=== PATIENT | female | born 1980 | race African-American/Black ===

== ENCOUNTER 2016-12-18 18:33 | Observation (INO) | payer OTHER ==
[~2016-12-18] VITALS: Ht 170.2 cm; Wt 62.0 kg
[2016-12-18] VITALS (8 sets, daily range): BP systolic 98–129; BP diastolic 54–75; PULSE 63–78; RESP 16–20; TEMP 97.4–98.3; O2SAT 98–100
[~2016-12-18 18:33] MED LIST: FERR324T4 PO
[2016-12-18 18:53] LABS: MEAN CORPUSCULAR HGB CONC 26.3 % (32.0-36.0)
--- NOTE | 2016-12-18 19:01 | PD ---
HPI Chief Complaint: Materials Intern Problem/Complaint Time Seen by Provider: 18:51 Travel History International Travel<30 days: No Contact w/Intl Traveler<30days: No Traveled to known affect area: No History of Present Illness HPI This 36-year-old female complaining of lower abdominal pain. She has a history of fibroids which is quite severe in the past. She has a history of anemia and has required transfusion in the past she's had increasing bleeding with her periods for the last few weeks. She is having lower abdominal pain. She has a poor appetite. She has no history of surgery. He has not had sex with a man for many years. She believes for anywhere from 5-10 days during her period. She has noted exertional dyspnea. Today she had to climb some stairs and had to stop several times PFSH Past Medical History Anemia: Yes Anxiety: No Depression: No Cancer: No Cardiovascular Problems: No Diminished Hearing: No Endocrine: No Genitourinary: No Immune Disorder: No Musculoskeletal: No Neurologic: No Psychiatric: No Reproductive: No Respiratory: Yes Social History Alcohol Use: Yes Tobacco Use: Yes Substance Use: No Allergies-Medications (Allergen,Severity, Reaction): Coded Allergies: No Known Allergies (Verified , 02/26/16) Reported Meds & Prescriptions Reported Meds & Active Scripts Active No Active Prescriptions or Reported Medications Review of Systems General / Constitutional: No: Fever, Chills Eyes: No: Diploplia, Blurred Vision HENT: No: Headaches, Vertigo Cardiovascular: No: Chest Pain or Discomfort, Palpitations Respiratory: Positive: Shortness of Breath, No: Cough Gastrointestinal: Positive: Nausea, Abdominal Pain, No: Vomiting Genitourinary: Positive: Pelvic Pain, Vaginal Bleeding Musculoskeletal: No: Myalgias, Arthralgias Skin: No Rash Neurologic: Positive: Weakness Physical Exam Narrative GENERAL: Thin female. She appears quite pale SKIN: Focused skin assessment warm/dry. HEAD: Atraumatic. Normocephalic. EYES: Pupils equal and round. No scleral icterus. Conjunctiva pale ENT: No nasal bleeding or discharge. Mucous membranes pink and moist. NECK: Trachea midline. No JVD. CARDIOVASCULAR: Regular rate and rhythm. No murmur appreciated. RESPIRATORY: No accessory muscle use. Clear to auscultation. Breath sounds equal bilaterally. GASTROINTESTINAL: Abdomen soft, lower abdominal tenderness in the pelvic masses palpable Pelvic: There is bleeding from the cervical os. Uterus is palpable at the umbilicus and is quite firm. MUSCULOSKELETAL: No obvious deformities. No clubbing. No cyanosis. No edema. NEUROLOGICAL: Awake and alert. No obvious cranial nerve deficits. Motor grossly within normal limits. Normal speech. PSYCHIATRIC: Appropriate mood and affect; insight and judgment normal. Data Data Last Documented VS Vital Signs Date Time Temp Pulse Resp B/P Pulse Ox O2 Delivery O2 Flow Rate FiO2 12/18/16 20:05 17 12/18/16 18:56 98.2 76 98/54 98 Orders Complete Blood Count With Diff (12/18/16 18:51) Comprehensive Metabolic Panel (12/18/16 18:51) Urinalysis - C+S If Indicated (12/18/16 18:51) Ct Abd/Pel W Iv Contrast(Rout) (12/18/16 18:51) Ed Urine Pregnancytest Poc (12/18/16 18:51) Sodium Chlor 0.9% 1000 Ml Inj (Ns 1000 M (12/18/16 19:45) Ondansetron Inj (Zofran Inj) (12/18/16 19:45) Morphine Inj (Morphine Inj) (12/18/16 20:00) Red Blood Cells (Rbc) (12/18/16 20:03) Type And Screen (12/18/16 20:03) Labs Laboratory Tests Test 12/18/16 19:40 White Blood Count 4.6 TH/MM3 Red Blood Count 2.98 MIL/MM3 Hemoglobin 4.4 GM/DL Hematocrit 16.5 % Mean Corpuscular Volume 55.4 FL Mean Corpuscular Hemoglobin 14.6 PG Mean Corpuscular Hemoglobin 26.3 % Concent Red Cell Distribution Width 21.2 % Platelet Count 171 TH/MM3 Mean Platelet Volume 6.6 FL Neutrophils (%) (Auto) 69.0 % Lymphocytes (%) (Auto) 24.5 % Monocytes (%) (Auto) 5.7 % Eosinophils (%) (Auto) 0.6 % Basophils (%) (Auto) 0.2 % Neutrophils # (Auto) 3.2 TH/MM3 Lymphocytes # (Auto) 1.1 TH/MM3 Monocytes # (Auto) 0.3 TH/MM3 Eosinophils # (Auto) 0.0 TH/MM3 Basophils # (Auto) 0.0 TH/MM3 CBC Comment AUTO DIFF Urine Color YELLOW Urine Turbidity CLEAR Urine pH 6.0 Urine Specific [place] 1.021 Urine Protein NEG mg/dL Urine Glucose (UA) NEG mg/dL Urine Ketones NEG mg/dL Urine Occult Blood LARGE Urine Nitrite NEG Urine Bilirubin NEG Urine Leukocyte Esterase NEG Urine RBC 4-9 /hpf Urine WBC 0-2 /hpf Urine Squamous Epithelial 0-5 /hpf Cells Urine Mucus FEW /lpf Microscopic Urinalysis Comment CULT NOT INDICATED Sodium Level 140 MEQ/L Potassium Level 3.7 MEQ/L Chloride Level 110 MEQ/L Carbon Dioxide Level 22.2 MEQ/L Anion Gap 8 MEQ/L Blood Urea Nitrogen 12 MG/DL Creatinine 0.76 MG/DL Estimat Glomerular Filtration 104 ML/MIN Rate Random Glucose 76 MG/DL Calcium Level 8.2 MG/DL Total Bilirubin 0.4 MG/DL Aspartate Amino Transf 11 U/L (AST/SGOT) Alanine Aminotransferase 13 U/L (ALT/SGPT) Alkaline Phosphatase 46 U/L Total Protein 7.2 GM/DL Albumin 4.1 GM/DL [facility] Medical Decision Making Medical Screen Exam Complete: Yes Emergency Medical Condition: Yes Medical Record Reviewed: Yes Differential Diagnosis Differential includes anemia, uterine fibroids, Narrative Course Hemoglobin is 4.4 with an MCV of 55. Patient will need blood transfusion today. The CT scan has been ordered. She is complaining of postprandial pain and nausea Diagnosis Primary Impression: Anemia Qualified Code: D50.0 - Iron deficiency anemia due to chronic blood loss Additional Impression: Fibroid uterus Qualified Code: D25.9 - Uterine leiomyoma, unspecified location Admitting Information Admitting Physician Requests: Admit Scripts No Active Prescriptions or Reported Meds Sukhdev Santizo MD Dec 18, 2016 19:01
[2016-12-18] MEDS ORDERED: ONDANSETRON HCL 4 MG/2 ML VIAL IV PUSH ONE (19:45)
[2016-12-18] MEDS ORDERED: MORPHINE SULFATE 4 MG/ML INJ IV PUSH ONE ×3 (19:45→22:15)
[2016-12-18 19:48] LABS: BLOOD, URINE LARGE (NEG); GLUCOSE,URINE NEG (NEG); KETONE, URINE NEG (NEG); NITRITE,URINE NEG (NEG)
[2016-12-18 19:51] LABS: AUTOMATED NEUTROPHIL # 3.2 TH/MM3 (1.8-7.7); BASOPHIL % 0.2 % (0.0-2.0); EOSINOPHIL % 0.6 % (0.0-4.0); LYMPH % 24.5 % (9.0-44.0); LYMPHOCYTE # 1.1 TH/MM3 (1.0-4.8); MEAN CELL VOLUME 55.4 FL (80.0-100.0); MEAN CORPUSCULAR HEMOGLOBIN 14.6 PG (27.0-34.0); MONO % 5.7 % (0.0-8.0); PLATELET COUNT 171 TH/MM3 (150-450); RED BLOOD COUNT 2.98 MIL/MM3 (4.00-5.30); RED CELL DISTRIBUTION WIDTH 21.2 % (11.6-17.2); WHITE BLOOD COUNT 4.6 TH/MM3 (4.0-11.0)
[2016-12-18 19:55] LABS: CHLORIDE 110 MEQ/L (98-107); MUCUS URINE FEW /lpf (OCC); POTASSIUM 3.7 MEQ/L (3.5-5.1); SODIUM (NA) 140 MEQ/L (136-145); SQUAMOUS EPITHELIAL CELL URINE 0-5 /hpf (0-5); URINE COLOR YELLOW (YELLW/STRAW); WBC, URINE 0-2 /hpf (0-5)
[2016-12-18 19:56] LABS: COMMENT (UR) CULT NOT INDICATED; CULTURE IF INDICATED CULT NOT INDICATED
[2016-12-18 19:58] LABS: ANION GAP 8 MEQ/L (5-15); BICARBONATE 22.2 MEQ/L (21.0-32.0); BLOOD UREA NITROGEN 12 MG/DL (7-18); HEMO FLAGS AUTO DIFF
[2016-12-18] MEDS: SODIUM CHLOR 0.9% 1000 ML INJ 1,000 ML IV SCH (19:58)
[2016-12-18 20:00] LABS: HEMATOCRIT 16.5 % (35.0-46.0)
[2016-12-18] MEDS ORDERED: MORPHINE SULFATE 8 MG/ML INJ IV PUSH ONE ×2 (20:00→22:15)
[2016-12-18 20:01] LABS: ALT (GPT) 13 U/L (10-53)
[2016-12-18 20:02] LABS: AST (GOT) 11 U/L (15-37); GLOMERULAR FILTRATION RATE 104 ML/MIN (>89)
[2016-12-18 20:03] LABS: TOTAL BILIRUBIN ADULT 0.4 MG/DL (0.2-1.0)
[2016-12-18 20:04] LABS: ALKALINE PHOSPHATASE 46 U/L (45-117)
[2016-12-18 20:39] LABS: OVALOCYTES 2+ (NORMAL); STOMATOCYTES 1+ (NORMAL); TEARDROP RBCS 2+ (NORMAL)
[2016-12-18 20:41] LABS: SCAN/DIFF AUTO DIFF CONFIRMED
[2016-12-18 20:42] LABS: ACANTHOCYTES 1+ (NORMAL)
[2016-12-18] MEDS ORDERED: IOHEXOL 350 MG/ML 10 ML VIAL (for RAD DIAG) IV ONE (20:42)
--- NOTE | 2016-12-18 21:14 | RADRPT ---
EXAM DATE/TIME: 12/18/2016 20:29 [facility] COMPARISON: US PELVIS,COMP,W DOPPLER, February 20, 2016, 21:21. INDICATIONS : History of fibroids. Heavy bleeding since 12-01-16 IV CONTRAST: 96 cc Omnipaque 350 (iohexol) IV ORAL CONTRAST: No oral contrast ingested. RADIATION DOSE: 4.73 CTDIvol (mGy) MEDICAL HISTORY : Anemia, fibriods SURGICAL HISTORY : None. ENCOUNTER: Initial ACUITY: 2 weeks PAIN SCALE: 10/10 LOCATION: Bilateral pelvis TECHNIQUE: Volumetric scanning of the abdomen and pelvis was performed. Using automated exposure control and ad justment of the mA and/or kV according to patient size, radiation dose was kept as low as reasonably achievable to obtain optimal diagnostic quality images. DICOM format image data is available electro nically for review and comparison. FINDINGS: CT Abdomen: The liver, spleen, pancreas, kidneys, adrenals are unremarkable. There is no evidence for any appreciable pathological adenopathy, free fluid, or bowel obstruction. CT pelvis: The uterus is enlarged measures 12.4 cm in craniocaudal dimension and is filled with multi ple masses most likely fibroids the largest one measures 9.3 cm in size, however malignant degenerati on is difficult to exclude. Possible 2.5 cm cyst is present in the left ovary. CONCLUSION: Huge uterus filled with multiple masses most likely fibroids. Oumar Leblanc MD on December 18, 2016 at 21:09 Board Certified Radiologist. This report was verified electronically.
[2016-12-18] MEDS ORDERED: BISACODYL 10 MG SUPP RECTAL PRN (21:15)
[2016-12-18] MEDS ORDERED: NALOXONE HCL 0.4 MG/ML AMP IV PRN (21:15)
[2016-12-18] MEDS ORDERED: SENNOSIDES 8.6 MG TAB PO PRN (21:15)
[2016-12-18] MEDS ORDERED: SODIUM CHLORIDE 0.9% FLUSH 10 ML FLUSH IV FLUSH PRN (21:15)
[2016-12-18] MEDS ORDERED: MAGNESIUM HYDROXIDE SUSP 30 ML CUP PO PRN (21:15)
[2016-12-18] MEDS ORDERED: LACTULOSE SYRUP 20 GM/30 ML CUP PO PRN (21:15)
[2016-12-18] MEDS ORDERED: SODIUM CHLOR 0.9% 250 ML INJ 250 ML IV ONE (21:30)
[2016-12-19] VITALS (10 sets, daily range): BP systolic 95–118; BP diastolic 55–77; PULSE 52–67; RESP 16–20; TEMP 97–98.1; O2SAT 99–100
[2016-12-19] MEDS: SODIUM CHLOR 0.9% 1000 ML INJ 1,000 ML IV SCH ×3 (03:45→22:04)
[2016-12-19] MEDS: MORPHINE SULFATE 8 MG/ML INJ IV PUSH PRN ×5 (03:58→23:22)
[2016-12-19] MEDS: SODIUM CHLORIDE 0.9% FLUSH 10 ML FLUSH IV FLUSH SCH ×2 (08:39→22:04)
[2016-12-19] MEDS: DOCUSATE SODIUM 50 MG/SENNA 8.6 MG TAB PO SCH ×2 (08:39→22:04)
[2016-12-19 11:33] LABS: AUTOMATED NEUTROPHIL # 2.9 TH/MM3 (1.8-7.7); BASOPHIL % 0.2 % (0.0-2.0); EOSINOPHIL % 0.8 % (0.0-4.0); HEMATOCRIT 26.6 % (35.0-46.0); LYMPH % 20.3 % (9.0-44.0); LYMPHOCYTE # 0.8 TH/MM3 (1.0-4.8); MEAN CELL VOLUME 66.5 FL (80.0-100.0); MEAN CORPUSCULAR HEMOGLOBIN 20.3 PG (27.0-34.0); MEAN CORPUSCULAR HGB CONC 30.5 % (32.0-36.0); MONO % 7.2 % (0.0-8.0); NEUT % 71.5 % (16.0-70.0); PLATELET COUNT 109 TH/MM3 (150-450); RED CELL DISTRIBUTION WIDTH 27.2 % (11.6-17.2)
[2016-12-19 11:36] LABS: HEMO FLAGS AUTO DIFF
[2016-12-19 11:40] LABS: POTASSIUM 3.7 MEQ/L (3.5-5.1)
[2016-12-19 11:45] LABS: BICARBONATE 24.5 MEQ/L (21.0-32.0)
[2016-12-19 12:06] LABS: ACANTHOCYTES 1+ (NORMAL); KERATOCYTES 1+ (NORMAL); OVALOCYTES 2+ (NORMAL); PLATELET ESTIMATE SMEAR LOW (NORMAL); PLATELET MORPHOLOGY NORMAL (NORMAL); SCAN/DIFF AUTO DIFF CONFIRMED; TEARDROP RBCS 1+ (NORMAL)
--- NOTE | 2016-12-19 17:34 | MH ---
cc: CLIFTON CULVER MD DATE OF ADMISSION 12/18/2016 CHIEF COMPLAINT Abdominal pain. HISTORY OF PRESENT ILLNESS This is a 36-year-old female with past medical-surgical history significant for anemia. Smoker, complaining of lower abdominal pain and the history of fibroid which is quite severe, in the past have a history of anemia and required transfusion in the past. She did have increasing bleeding with periods for the last week and she is having lower abdominal pain, has a poor appetite and no history of surgery. The pain is about a 7/10, sharp, lower abdominal area, worse with pressure, other than that nothing significant. Actually, this patient was seen by me in my office yesterday and then I sent her to the ER and she got admitted over there for further evaluation and management. Other than that nothing significant. PAST MEDICAL-SURGICAL HISTORY As dictated above. SOCIAL HISTORY She is a smoker. Drinks alcohol and denies any drug abuse. She lives at home, works at [email or web address]. FAMILY HISTORY Nothing significant. ALLERGIES NO KNOWN DRUG ALLERGIES. MEDICATIONS None. REVIEW OF SYSTEMS Lower abdominal pain and vaginal bleeding. Feeling weak and tired. All other review of systems are negative. PHYSICAL EXAMINATION GENERAL: This is a 36-year-old female laying on the bed, not in acute distress. VITAL SIGNS: Temperature 97.0, heart rate 52, respiration 18, blood pressure 118/70, O2 saturation 99% room air. HEENT: Normocephalic, atraumatic. EOMI. PERRL. Oral mucosa moist. NECK: Neck is supple. No visible thyromegaly or neck mass. Trachea central. CVS: Regular rate and rhythm. LUNGS: Respirations clear to auscultation bilaterally. ABDOMEN: Soft, tender diffuse lower abdominal, bowel sounds audible. Deep palpation not done because of the pain. EXTREMITIES: No cyanosis, clubbing. Full range of motion of all extremities. NEURO: Awake, alert, oriented x4. No focal deficits. LABORATORY DATA Include CBC showed WBC count 4.6, hemoglobin was 4.4, status post transfusion increased up to 8.1, hematocrit was 16.5, increased up to 26.6, platelet count 171, now it is 109. BMP totally unremarkable except for calcium 7.8, low. LFTs are normal. Urine examination shows large occult blood, 4 to [address] abdomen and pelvis was done shows huge uterus filled with multiple masses, most likely fibroid. ASSESSMENT/PLAN 1. This is a 36-year-old female who came to the ER diagnosed with excessive vaginal bleeding with a uterine fibroid leading to severe life threatening anemia, hemoglobin was 4.4. Status post blood transfusion hemoglobin increased to 8.1. Gynecology consulted. Further recommendation per gynecology. 2. Acute blood loss anemia secondary to vaginal bleeding and fibroids. 3. Smoking, advised to quit. 4. History of anemia secondary to vaginal bleeding. 5. DVT prophylaxis, SCDs. 6. GI prophylaxis, Protonix 40 milligrams p.o. daily. 7. We are going to manage the patient on a daily basis, make recommendations on a daily basis. Clifton Culver MD EA/POLLY /5:17 PM /5:26 PM
[2016-12-19 21:09] LABS: MEAN CORPUSCULAR HGB CONC 29.3 % (32.0-36.0)
[2016-12-20] VITALS: BP 119/72; PULSE 59; RESP 16; TEMP 97.9; O2SAT 98
[2016-12-20] MEDS: MORPHINE SULFATE 8 MG/ML INJ IV PUSH PRN ×4 (04:41→22:24)
[2016-12-20] MEDS: SODIUM CHLOR 0.9% 1000 ML INJ 1,000 ML IV SCH ×3 (04:43→19:59)
[2016-12-20 08:00] VITALS: BP 110/71; PULSE 65; RESP 20; TEMP 97.9; O2SAT 99
--- NOTE | 2016-12-20 08:50 | HHI.PR ---
Subjective History of Present Illness Patient still have abdominal pain and pelvic pain [employer] input noted Review of Systems Constitutional Constitutional: Fatigue GI/Abdomen GI/Abdominal Exam: Abdominal Pain Vitals/Results Intake & Output 12/19/16 12/19/16 12/20/16 15:00 23:00 07:00 Intake Total 750 ml 480 ml 1400 ml Balance 750 ml 480 ml 1400 ml Intake Oral 750 ml 480 ml IV Total 1400 ml # Voids 6 2 # Bowel Movements 0 0 Vital Signs Vital Signs Date Time Temp Pulse Resp B/P Pulse Ox O2 Delivery O2 Flow Rate FiO2 12/20/16 00:00 97.9 59 16 119/72 98 12/19/16 20:25 99 21 12/19/16 20:00 97.7 63 18 113/77 100 12/19/16 18:49 18 12/19/16 16:00 98.0 65 16 102/55 100 12/19/16 12:00 97.0 52 18 118/70 99 CBC/BMP: 12/19/16 1120 12/19/16 1120 Lab Results Laboratory Tests Test 12/19/16 11:20 White Blood Count 4.0 TH/MM3 Red Blood Count 4.00 MIL/MM3 Hemoglobin 8.1 GM/DL Hematocrit 26.6 % Mean Corpuscular Volume 66.5 FL Mean Corpuscular Hemoglobin 20.3 PG Mean Corpuscular Hemoglobin 30.5 % Concent Red Cell Distribution Width 27.2 % Platelet Count 109 TH/MM3 Mean Platelet Volume 6.8 FL Neutrophils (%) (Auto) 71.5 % Lymphocytes (%) (Auto) 20.3 % Monocytes (%) (Auto) 7.2 % Eosinophils (%) (Auto) 0.8 % Basophils (%) (Auto) 0.2 % Neutrophils # (Auto) 2.9 TH/MM3 Lymphocytes # (Auto) 0.8 TH/MM3 Monocytes # (Auto) 0.3 TH/MM3 Eosinophils # (Auto) 0.0 TH/MM3 Basophils # (Auto) 0.0 TH/MM3 CBC Comment AUTO DIFF Differential Comment AUTO DIFF CONFIRMED Platelet Estimate LOW Platelet Morphology Comment NORMAL Tear Drop Cells 1+ Ovalocytes 2+ Acanthocytes 1+ Keratocytes 1+ Sodium Level 142 MEQ/L Potassium Level 3.7 MEQ/L Chloride Level 110 MEQ/L Carbon Dioxide Level 24.5 MEQ/L Anion Gap 8 MEQ/L Blood Urea Nitrogen 10 MG/DL Creatinine 0.62 MG/DL Estimat Glomerular Filtration 131 ML/MIN Rate Random Glucose 99 MG/DL Calcium Level 7.8 MG/DL Physical Exam General General Appearance: Well Nourished, No Acute Distress, Comfortable Eyes Eye Exam: Pupils Equal, Pupils Reactive, Sclera White, Extraocular Movement Intact Throat Throat Exam: Oral Mucosa [place] & Moist, Oral Pharynx Normal Neck Neck Exam: Neck Supple, Trachea Midline Pulmonary Resp Exam: Clear Bilaterally, Breath Sounds Equal, No Distress Cardiology CV Exam: Regular, Normal Sinus Rhythm Gastrointestinal/Abdomen GI Exam: Soft, Non-Tender, Bowel Sounds Present Musculoskeletal MS Exam: Normal Tone Neurologic Neuro Exam: Alert, Awake, Oriented, Speech Clear, Moving All Extremities, No Focal Deficits Psychiatric Psych Exam: Appropriate Responses VTE Prophylaxis VTE Prophylaxis Device: SCDs PUD Prophylasis PUD Prophylaxis: Protonix Assessment/Plan Assessment/Plan ASSESSMENT/PLAN 1. This is a 36-year-old female who came to the ER diagnosed with excessive vaginal bleeding with a uterine fibroid leading to severe life threatening anemia, hemoglobin was 4.4. Status post blood transfusion hemoglobin increased to 8.1. Gynecology consulted. Further recommendation per gynecology. 2. Acute blood loss anemia secondary to vaginal bleeding and fibroids. 3. Smoking, advised to quit. 4. History of anemia secondary to vaginal bleeding. 5. DVT prophylaxis, SCDs. 6. GI prophylaxis, Protonix 40 milligrams p.o. daily. 7. We are going to manage the patient on a daily basis, make recommendations on a daily basis. Discussed Condition with: Patient Clifton Izquierdo MD Dec 20, 2016 08:50
[2016-12-20] MEDS: SODIUM CHLORIDE 0.9% FLUSH 10 ML FLUSH IV FLUSH SCH ×2 (08:52→19:59)
[2016-12-20] MEDS: DOCUSATE SODIUM 50 MG/SENNA 8.6 MG TAB PO SCH ×2 (08:52→19:59)
[2016-12-20 09:00] LABS: AUTOMATED NEUTROPHIL # 3.3 TH/MM3 (1.8-7.7); BASOPHIL % 0.1 % (0.0-2.0); EOSINOPHIL % 0.7 % (0.0-4.0); LYMPH % 24.6 % (9.0-44.0); LYMPHOCYTE # 1.2 TH/MM3 (1.0-4.8); MEAN CELL VOLUME 67.3 FL (80.0-100.0); MEAN CORPUSCULAR HEMOGLOBIN 19.7 PG (27.0-34.0); MONO % 7.5 % (0.0-8.0); NEUT % 67.1 % (16.0-70.0); PLATELET COUNT 103 TH/MM3 (150-450); RED BLOOD COUNT 4.17 MIL/MM3 (4.00-5.30); RED CELL DISTRIBUTION WIDTH 27.9 % (11.6-17.2); WHITE BLOOD COUNT 4.9 TH/MM3 (4.0-11.0)
[2016-12-20 09:09] LABS: CHLORIDE 114 MEQ/L (98-107); POTASSIUM 4.1 MEQ/L (3.5-5.1); SODIUM (NA) 143 MEQ/L (136-145)
[2016-12-20 09:33] LABS: HEMO FLAGS AUTO DIFF
[2016-12-20 09:41] LABS: ALKALINE PHOSPHATASE 43 U/L (45-117); ALT (GPT) 13 U/L (10-53); ANION GAP 7 MEQ/L (5-15); AST (GOT) 11 U/L (15-37); BICARBONATE 21.9 MEQ/L (21.0-32.0); BLOOD UREA NITROGEN 8 MG/DL (7-18); GLOMERULAR FILTRATION RATE 136 ML/MIN (>89); TOTAL BILIRUBIN ADULT 0.4 MG/DL (0.2-1.0)
[2016-12-20] MEDS ORDERED: PERC5TAB12 PO (09:57)
[2016-12-20 10:01] LABS: SCAN/DIFF AUTO DIFF CONFIRMED
[2016-12-20 12:00] VITALS: BP 110/69; PULSE 62; RESP 20; TEMP 98.1; O2SAT 100
[2016-12-20] MEDS: ONDANSETRON HCL 4 MG/2 ML VIAL IVP PRN ×2 (13:47→19:58)
--- NOTE | 2016-12-20 15:33 | PD.CONS ---
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 The information given to me at first was that the patient was in the [facility] which meant that the OB Hospitalist was in charge of the consult. I was later made aware that the patient was in [facility] which meant that I was responsible for seeing the patient. Unfortunately, on early Thursday morning I had to take my to [place] for his medical care at [facility] so the consult slipped my mind. Two days later I received a call from the patient' s nurse Cande who was frustrated due to "delayed patient care" and "I will speak about this with my animal maintenance supervisor". As much as it is true that I am responsible for the consult as it came in , it is also true that if the physician requesting the consult and the nurse taking care of the patient were really concerned about her care, they would have reminded me a lot sooner. Instead, I was scalded by both of them today for not taking care of the patient. I apologized. Laboratory Tests Test 12/18/16 12/18/16 12/19/16 12/20/16 19:40 20:08 11:20 07:36 White Blood Count 4.6 TH/MM3 4.0 TH/MM3 4.9 TH/MM3 Red Blood Count 2.98 MIL/MM3 4.00 MIL/MM3 4.17 MIL/MM3 Hemoglobin 4.4 GM/DL 8.1 GM/DL 8.2 GM/DL Hematocrit 16.5 % 26.6 % 28.0 % Mean Corpuscular Volume 55.4 FL 66.5 FL 67.3 FL Mean Corpuscular Hemoglobin 14.6 PG 20.3 PG 19.7 PG Mean Corpuscular Hemoglobin 26.3 % 30.5 % 29.3 % Concent Red Cell Distribution Width 21.2 % 27.2 % 27.9 % Platelet Count 171 TH/MM3 109 TH/MM3 103 TH/MM3 Mean Platelet Volume 6.6 FL 6.8 FL 7.5 FL Neutrophils (%) (Auto) 69.0 % 71.5 % 67.1 % Lymphocytes (%) (Auto) 24.5 % 20.3 % 24.6 % Monocytes (%) (Auto) 5.7 % 7.2 % 7.5 % Eosinophils (%) (Auto) 0.6 % 0.8 % 0.7 % Basophils (%) (Auto) 0.2 % 0.2 % 0.1 % Neutrophils # (Auto) 3.2 TH/MM3 2.9 TH/MM3 3.3 TH/MM3 Lymphocytes # (Auto) 1.1 TH/MM3 0.8 TH/MM3 1.2 TH/MM3 Monocytes # (Auto) 0.3 TH/MM3 0.3 TH/MM3 0.4 TH/MM3 Eosinophils # (Auto) 0.0 TH/MM3 0.0 TH/MM3 0.0 TH/MM3 Basophils # (Auto) 0.0 TH/MM3 0.0 TH/MM3 0.0 TH/MM3 CBC Comment AUTO DIFF AUTO DIFF AUTO DIFF Differential Comment AUTO DIFF AUTO DIFF AUTO DIFF CONFIRMED CONFIRMED CONFIRMED Target Cells Tear Drop Cells 2+ 1+ Ovalocytes 2+ 2+ Stomatocytes 1+ Acanthocytes 1+ 1+ Keratocytes 1+ Urine Color YELLOW Urine Turbidity CLEAR Urine pH 6.0 Urine Specific [place] 1.021 Urine Protein NEG mg/dL Urine Glucose (UA) NEG mg/dL Urine Ketones NEG mg/dL Urine Occult Blood LARGE Urine Nitrite NEG Urine Bilirubin NEG Urine Leukocyte Esterase NEG Urine RBC 4-9 /hpf Urine WBC 0-2 /hpf Urine Squamous Epithelial 0-5 /hpf Cells Urine Mucus FEW /lpf Microscopic Urinalysis Comment CULT NOT INDICATED Sodium Level 140 MEQ/L 142 MEQ/L 143 MEQ/L Potassium Level 3.7 MEQ/L 3.7 MEQ/L 4.1 MEQ/L Chloride Level 110 MEQ/L 110 MEQ/L 114 MEQ/L Carbon Dioxide Level 22.2 MEQ/L 24.5 MEQ/L 21.9 MEQ/L Anion Gap 8 MEQ/L 8 MEQ/L 7 MEQ/L Blood Urea Nitrogen 12 MG/DL 10 MG/DL 8 MG/DL Creatinine 0.76 MG/DL 0.62 MG/DL 0.60 MG/DL Estimat Glomerular Filtration 104 ML/MIN 131 ML/MIN 136 ML/MIN Rate Random Glucose 76 MG/DL 99 MG/DL 71 MG/DL Calcium Level 8.2 MG/DL 7.8 MG/DL 7.9 MG/DL Total Bilirubin 0.4 MG/DL 0.4 MG/DL Aspartate Amino Transf 11 U/L 11 U/L (AST/SGOT) Alanine Aminotransferase 13 U/L 13 U/L (ALT/SGPT) Alkaline Phosphatase 46 U/L 43 U/L Total Protein 7.2 GM/DL 6.0 GM/DL Albumin 4.1 GM/DL 3.2 GM/DL Blood Type A POSITIVE Antibody Screen NEGATIVE Crossmatch Leukocyte-Reduced Red Blood Cells Blood Bank Comment Platelet Estimate LOW Platelet Morphology Comment NORMAL Vital Signs Date Time Temp Pulse Resp B/P Pulse Ox O2 Delivery O2 Flow Rate FiO2 12/20/16 12:00 98.1 62 20 110/69 100 12/20/16 08:00 97.9 65 20 110/71 99 12/20/16 00:00 97.9 59 16 119/72 98 12/19/16 20:25 99 21 12/19/16 20:00 97.7 63 18 113/77 100 12/19/16 18:49 18 12/19/16 16:00 98.0 65 16 102/55 100 Last 48 hours Impressions Abdomen/Pelvis CT 12/18/161850 Signed Impressions: Service Date/Time: December 20:29 - CONCLUSION: Huge uterus filled with multiple masses most likely fibroids. Oumar Leblanc MD Last Impressions Pelvis Ultrasound 12/20/16 0000 Signed Impressions: Service Date/Time: Tuesday, December 20, 2016 20:17 - CONCLUSION: Multiple uterine fibroids with possibly an endometrial polyp versus a submucosal fibroid as well. Oumar Leblanc MD Abdomen/Pelvis CT 12/18/161850 Signed Impressions: Service Date/Time: December 20:29 - CONCLUSION: Huge uterus filled with multiple masses most likely fibroids. Omuar Leblanc MD A/P -- severe anemia secondary to long history of menorrhagia / AUB secondary to fibroids 1. IV Premarin x 4 doses 2. recommended to take Progesterone 10 mg PO qhs until surgery 3. discussed the need for a pap smear and improvement of her anemia before she can have surgery 4. discussed different types of hysterectomy / leaving ovaries in situ 5. answered patient's and partner's questions; they verbalized understanding and agreement to the treatment plan Kathleen Valdes MD Dec 20, 2016 15:33
[2016-12-20 16:00] VITALS: BP 119/74; PULSE 57; RESP 20; TEMP 98.1; O2SAT 100
[2016-12-20] MEDS: ESTROGENS CONJUGATED 25 MG/5 ML VIAL IM SCH ×2 (17:34→22:23)
--- NOTE | 2016-12-20 20:44 | RADRPT ---
EXAM DATE/TIME: 12/20/2016 20:17 [facility] COMPARISON: No previous studies available for comparison. INDICATIONS : History of fibroids. Heavy bleeding since 12-01-16. MEDICAL HISTORY : Fibroids. Anemia. SURGICAL HISTORY : None. ENCOUNTER: [facility] ACUITY: 2 weeks PAIN SCORE: 7/10 LOCATION: Bilateral pelvis. MEASUREMENTS: UTERUS: 15.7 x 11.2 x 11.9 cm ENDOMETRIAL STRIPE: 10 mm RIGHT OVARY: 2.9 x 1.8 x 1.8 cm LEFT OVARY: 3.8 x 3.6 x 2.7 cm FINDINGS: The uterus is enlarged with numerous fibroids within it the largest one measures almost 8 cm in size it. There is tiny amount of fluid in the cul-de-sac. There is no adnexal mass. The there is an endome trial polyp versus a submucosal fibroid as well. CONCLUSION: Multiple uterine fibroids with possibly an endometrial polyp versus a submucosal fibroid as well. Oumar Leblanc MD on December 20, 2016 at 20:41 Board Certified Radiologist. This report was verified electronically.
[2016-12-20 21:23] VITALS: BP 111/68; PULSE 68; RESP 18; TEMP 98.6; O2SAT 98
[2016-12-21] VITALS: BP 105/70; PULSE 71; RESP 18; TEMP 98.2; O2SAT 100
[2016-12-21] MEDS: ESTROGENS CONJUGATED 25 MG/5 ML VIAL IM SCH ×2 (03:38→09:51)
[2016-12-21] MEDS: SODIUM CHLOR 0.9% 1000 ML INJ 1,000 ML IV SCH ×3 (03:38→21:12)
[2016-12-21 08:00] VITALS: BP 102/65; PULSE 88; RESP 18; TEMP 98.3; O2SAT 100
[2016-12-21 08:48] LABS: AUTOMATED NEUTROPHIL # 4.7 TH/MM3 (1.8-7.7); BASOPHIL % 0.2 % (0.0-2.0); EOSINOPHIL % 0.8 % (0.0-4.0); HEMATOCRIT 27.5 % (35.0-46.0); LYMPH % 14.5 % (9.0-44.0); LYMPHOCYTE # 0.9 TH/MM3 (1.0-4.8); MEAN CELL VOLUME 67.2 FL (80.0-100.0); MEAN CORPUSCULAR HEMOGLOBIN 19.5 PG (27.0-34.0); MONO % 7.4 % (0.0-8.0); NEUT % 77.1 % (16.0-70.0); PLATELET COUNT 87 TH/MM3 (150-450); RED BLOOD COUNT 4.08 MIL/MM3 (4.00-5.30); RED CELL DISTRIBUTION WIDTH 28.8 % (11.6-17.2); WHITE BLOOD COUNT 6.1 TH/MM3 (4.0-11.0)
[2016-12-21 08:52] LABS: HEMO FLAGS AUTO DIFF
[2016-12-21 08:59] LABS: CHLORIDE 114 MEQ/L (98-107); POTASSIUM 3.9 MEQ/L (3.5-5.1); SODIUM (NA) 143 MEQ/L (136-145)
[2016-12-21 09:03] LABS: ANION GAP 9 MEQ/L (5-15)
[2016-12-21 09:04] LABS: BLOOD UREA NITROGEN 8 MG/DL (7-18)
[2016-12-21 09:07] LABS: ALT (GPT) 14 U/L (10-53); AST (GOT) 12 U/L (15-37); GLOMERULAR FILTRATION RATE 124 ML/MIN (>89)
[2016-12-21 09:08] LABS: TOTAL BILIRUBIN ADULT 0.5 MG/DL (0.2-1.0)
[2016-12-21 09:09] LABS: ALKALINE PHOSPHATASE 40 U/L (45-117)
[2016-12-21 09:39] LABS: SCAN/DIFF AUTO DIFF CONFIRMED
--- NOTE | 2016-12-21 09:41 | HHI.PR ---
Subjective History of Present Illness Patient still have abdominal pain and pelvic pain and vaginal bleeding.. Cadmium Plater input noted s/p IV Premarin x 4 doses, Progesterone 10 mg PO qhs until surgery Patient need for a pap smear and improvement of her anemia before she can have surgery ACIDIZER have discussed different types of hysterectomy / leaving ovaries in situ Review of Systems Constitutional Constitutional: Fatigue GI/Abdomen GI/Abdominal Exam: Abdominal Pain Vitals/Results Intake & Output 12/20/16 12/20/16 12/21/16 15:00 23:00 07:00 Intake Total 450 ml 240 ml 1250 ml Balance 450 ml 240 ml 1250 ml Intake Oral 450 ml 240 ml IV Total 1250 ml # Voids 2 2 0 # Bowel Movements 0 Vital Signs Vital Signs Date Time Temp Pulse Resp B/P Pulse Ox O2 Delivery O2 Flow Rate FiO2 12/21/16 08:00 98.3 88 18 102/65 100 12/21/16 04:00 12/21/16 00:00 98.2 71 18 105/70 100 12/20/16 21:23 98.6 68 18 111/68 98 12/20/16 18:38 18 12/20/16 16:00 98.1 57 20 119/74 100 12/20/16 12:00 98.1 62 20 110/69 100 CBC/BMP: 12/21/16 0737 12/21/16 0737 Lab Results Laboratory Tests Test 12/21/16 07:37 White Blood Count 6.1 TH/MM3 Red Blood Count 4.08 MIL/MM3 Hemoglobin 7.9 GM/DL Hematocrit 27.5 % Mean Corpuscular Volume 67.2 FL Mean Corpuscular Hemoglobin 19.5 PG Mean Corpuscular Hemoglobin 29.0 % Concent Red Cell Distribution Width 28.8 % Platelet Count 87 TH/MM3 Mean Platelet Volume 7.1 FL Neutrophils (%) (Auto) 77.1 % Lymphocytes (%) (Auto) 14.5 % Monocytes (%) (Auto) 7.4 % Eosinophils (%) (Auto) 0.8 % Basophils (%) (Auto) 0.2 % Neutrophils # (Auto) 4.7 TH/MM3 Lymphocytes # (Auto) 0.9 TH/MM3 Monocytes # (Auto) 0.5 TH/MM3 Eosinophils # (Auto) 0.0 TH/MM3 Basophils # (Auto) 0.0 TH/MM3 CBC Comment AUTO DIFF Differential Comment AUTO DIFF CONFIRMED Sodium Level 143 MEQ/L Potassium Level 3.9 MEQ/L Chloride Level 114 MEQ/L Carbon Dioxide Level 20.0 MEQ/L Anion Gap 9 MEQ/L Blood Urea Nitrogen 8 MG/DL Creatinine 0.65 MG/DL Estimat Glomerular Filtration 124 ML/MIN Rate Random Glucose 70 MG/DL Calcium Level 7.6 MG/DL Total Bilirubin 0.5 MG/DL Aspartate Amino Transf 12 U/L (AST/SGOT) Alanine Aminotransferase 14 U/L (ALT/SGPT) Alkaline Phosphatase 40 U/L Total Protein 5.5 GM/DL Albumin 2.9 GM/DL Physical Exam General General Appearance: Well Nourished, No Acute Distress, Comfortable Eyes Eye Exam: Pupils Equal, Pupils Reactive, Sclera White, Extraocular Movement Intact Throat Throat Exam: Oral Mucosa [place] & Moist, Oral Pharynx Normal Neck Neck Exam: Neck Supple, Trachea Midline Pulmonary Resp Exam: Clear Bilaterally, Breath Sounds Equal, No Distress Cardiology CV Exam: Regular, Normal Sinus Rhythm Gastrointestinal/Abdomen GI Exam: Soft, Non-Tender, Bowel Sounds Present Musculoskeletal MS Exam: Normal Tone Neurologic Neuro Exam: Alert, Awake, Oriented, Speech Clear, Moving All Extremities, No Focal Deficits Psychiatric Psych Exam: Appropriate Responses VTE Prophylaxis VTE Prophylaxis Device: SCDs PUD Prophylasis PUD Prophylaxis: Protonix Assessment/Plan Assessment/Plan ASSESSMENT/PLAN 1. This is a 36-year-old female who came to the ER diagnosed with excessive vaginal bleeding with a uterine fibroid leading to severe life threatening anemia, hemoglobin was 4.4. Status post blood transfusion hemoglobin increased to 8.1. Gynecology Cadmium Plater input noted s/p IV Premarin x 4 doses, Progesterone 10 mg PO qhs until surgery Patient need for a pap smear and improvement of her anemia before she can have surgery ACIDIZER have discussed different types of hysterectomy / leaving ovaries in situ Further recommendation per gynecology. 2. Acute blood loss anemia secondary to vaginal bleeding and fibroids. 3. Smoking, advised to quit. 4. History of anemia secondary to vaginal bleeding. 5. DVT prophylaxis, SCDs. 6. GI prophylaxis, Protonix 40 milligrams p.o. daily. 7. We are going to manage the patient on a daily basis, make recommendations on a daily basis. Discussed Condition with: Patient Clifton Izquierdo MD Dec 21, 2016 09:41
[2016-12-21] MEDS: MORPHINE SULFATE 8 MG/ML INJ IV PUSH PRN ×2 (09:51→21:09)
[2016-12-21] MEDS: SODIUM CHLORIDE 0.9% FLUSH 10 ML FLUSH IV FLUSH SCH ×2 (09:54→21:09)
[2016-12-21] MEDS: DOCUSATE SODIUM 50 MG/SENNA 8.6 MG TAB PO SCH ×2 (09:54→21:09)
[2016-12-21 12:00] VITALS: BP 107/67; PULSE 78; RESP 18; TEMP 98.3; O2SAT 100
[2016-12-21 16:00] VITALS: BP 106/66; PULSE 85; RESP 18; TEMP 98.6; O2SAT 100
[2016-12-21 22:15] VITALS: BP 125/77; PULSE 62; RESP 16; TEMP 99.2; O2SAT 99
[2016-12-22 01:28] VITALS: BP 98/68; PULSE 73; RESP 18; TEMP 97.8; O2SAT 98
[2016-12-22] MEDS: SODIUM CHLOR 0.9% 1000 ML INJ 1,000 ML IV SCH (03:45)
[2016-12-22 08:00] VITALS: BP 109/65; PULSE 62; RESP 17; TEMP 98.1; O2SAT 100
--- NOTE | 2016-12-22 08:10 | HHI.PR ---
Subjective History of Present Illness Patient still have abdominal pain and pelvic pain and vaginal bleeding.. Endoscopy Tech input noted s/p IV Premarin x 4 doses, Progesterone 10 mg PO qhs until surgery Patient need for a pap smear and improvement of her anemia before she can have surgery [employer]IL RIG ROUGHNECK have discussed different types of hysterectomy / leaving ovaries in situ. d/w RN Tony at bed side. Review of Systems Constitutional Constitutional: Fatigue GI/Abdomen GI/Abdominal Exam: Abdominal Pain Vitals/Results Intake & Output 12/21/16 12/21/16 12/22/16 15:00 23:00 07:00 Intake Total 480 ml 1490 ml Balance 480 ml 1490 ml Intake Oral 480 ml 240 ml IV Total 1250 ml # Voids 2 3 Vital Signs Vital Signs Date Time Temp Pulse Resp B/P Pulse Ox O2 Delivery O2 Flow Rate FiO2 12/22/16 04:00 12/22/16 01:28 97.8 73 18 98/68 98 12/21/16 22:15 99.2 62 16 125/77 99 12/21/16 16:00 98.6 85 18 106/66 100 12/21/16 12:00 98.3 78 18 107/67 100 12/21/16 10:09 18 CBC/BMP: 12/22/16 0347 12/21/16 0737 Lab Results Laboratory Tests Test 12/21/16 12/22/16 19:40 03:47 Hemoglobin 8.1 GM/DL 7.7 GM/DL Physical Exam General General Appearance: Well Nourished, No Acute Distress, Comfortable Eyes Eye Exam: Pupils Equal, Pupils Reactive, Sclera White, Extraocular Movement Intact Throat Throat Exam: Oral Mucosa [place] & Moist, Oral Pharynx Normal Neck Neck Exam: Neck Supple, Trachea Midline Pulmonary Resp Exam: Clear Bilaterally, Breath Sounds Equal, No Distress Cardiology CV Exam: Regular, Normal Sinus Rhythm Gastrointestinal/Abdomen GI Exam: Soft, Non-Tender, Bowel Sounds Present Musculoskeletal MS Exam: Normal Tone Neurologic Neuro Exam: Alert, Awake, Oriented, Speech Clear, Moving All Extremities, No Focal Deficits Psychiatric Psych Exam: Appropriate Responses VTE Prophylaxis VTE Prophylaxis Device: SCDs PUD Prophylasis PUD Prophylaxis: Protonix Assessment/Plan Assessment/Plan ASSESSMENT/PLAN 1. This is a 36-year-old female who came to the ER diagnosed with excessive vaginal bleeding with a uterine fibroid leading to severe life threatening anemia, hemoglobin was 4.4. Status post blood transfusion hemoglobin increased to 8.1. Gynecology Endoscopy Tech input noted s/p IV Premarin x 4 doses, Progesterone 10 mg PO qhs until surgery Patient need for a pap smear and improvement of her anemia before she can have surgery [employer] R[employer]EC[employer] have discussed different types of hysterectomy / leaving ovaries in situ Further recommendation per gynecology. 2. Acute blood loss anemia secondary to vaginal bleeding and fibroids. 3. Smoking, advised to quit. 4. History of anemia secondary to vaginal bleeding. 5. DVT prophylaxis, SCDs. 6. GI prophylaxis, Protonix 40 milligrams p.o. daily. 7. We are going to manage the patient on a daily basis, make recommendations on a daily basis. Discussed Condition with: Patient Clifton Izquierdo MD Dec 22, 2016 08:10
[2016-12-22 08:12] LABS: AUTOMATED NEUTROPHIL # 2.2 TH/MM3 (1.8-7.7); BASOPHIL % 0.4 % (0.0-2.0); EOSINOPHIL % 1.1 % (0.0-4.0); HEMATOCRIT 27.5 % (35.0-46.0); MEAN CELL VOLUME 67.6 FL (80.0-100.0); MEAN CORPUSCULAR HEMOGLOBIN 19.6 PG (27.0-34.0); MONO % 10.2 % (0.0-8.0); NEUT % 60.3 % (16.0-70.0); PLATELET COUNT 86 TH/MM3 (150-450); RED BLOOD COUNT 4.07 MIL/MM3 (4.00-5.30); RED CELL DISTRIBUTION WIDTH 29.1 % (11.6-17.2); WHITE BLOOD COUNT 3.6 TH/MM3 (4.0-11.0)
[2016-12-22 08:14] LABS: HEMO FLAGS AUTO DIFF
[2016-12-22] MEDS ORDERED: PERC5TAB12 PO (08:20)
[2016-12-22] MEDS: MORPHINE SULFATE 8 MG/ML INJ IV PUSH PRN (08:21)
[2016-12-22] MEDS: SODIUM CHLORIDE 0.9% FLUSH 10 ML FLUSH IV FLUSH SCH (08:21)
[2016-12-22] MEDS: DOCUSATE SODIUM 50 MG/SENNA 8.6 MG TAB PO SCH (08:21)
[2016-12-22 08:25] LABS: CHLORIDE 113 MEQ/L (98-107); POTASSIUM 3.8 MEQ/L (3.5-5.1); SODIUM (NA) 142 MEQ/L (136-145)
[2016-12-22 08:29] LABS: ANION GAP 6 MEQ/L (5-15); BICARBONATE 23.5 MEQ/L (21.0-32.0); BLOOD UREA NITROGEN 5 MG/DL (7-18)
[2016-12-22 08:32] LABS: SPHEROCYTES OCC (NORMAL)
[2016-12-22 08:33] LABS: ACANTHOCYTES OCC (NORMAL); KERATOCYTES OCC (NORMAL); OVALOCYTES 1+ (NORMAL); PLATELET ESTIMATE SMEAR LOW (NORMAL); PLATELET MORPHOLOGY NORMAL (NORMAL); ROULEAUX PRESENT (NORMAL); SCAN/DIFF FINAL DIFF MANUAL; TEARDROP RBCS 1+ (NORMAL)
[2016-12-22 08:36] LABS: ALKALINE PHOSPHATASE 66 U/L (45-117); ALT (GPT) 58 U/L (10-53); AST (GOT) 63 U/L (15-37); GLOMERULAR FILTRATION RATE 129 ML/MIN (>89); TOTAL BILIRUBIN ADULT 0.4 MG/DL (0.2-1.0)
[2016-12-22 08:44] VITALS: RESP 18
--- NOTE | 2016-12-22 09:07 | MD ---
cc: CLIFTON CULVER MD ADMISSION DATE: 12/18/2016 DISCHARGE DATE: 12/22/2016 [place] Visit Search.Discharge Date Okay to discharge the patient. Condition at the time of discharge: Satisfactory. Activity: As tolerated. Diet: Cardiac diet. ALLERGIES No known drug allergies. ADMITTING DIAGNOSIS 1. Excessive vaginal bleeding secondary to uterine fibroid leading to severe, life-threatening anemia. Hemoglobin was 4.4. The patient is status post blood transfusion. Hemoglobin increased. FIBROUS WALLBOARD INSPECTOR saw the patient. The patient was given IV Premarin x4 doses and started on progesterone 10 mg p.o. h.s. until surgery. The patient needs a Pap smear and improvement in anemia before the surgery and needs to know what type of surgery, hysterectomy/leaving the ovaries in situ per FIBROUS WALLBOARD INSPECTOR. 2. Acute blood loss anemia secondary to vaginal bleed secondary to fibroid. 3. Smoking. Advised to quit. 4. History of anemia secondary to vaginal bleeding. HOSPITAL COURSE This is a 36-year-old -[place] female with past medical/surgical history of nothing significant except for anemia. She is my patient. She came to the office and I sent the patient to the ER for further evaluation and treatment. She was diagnosed with life-threatening anemia with a hemoglobin of 4.4. Gynecology saw the patient. The patient got blood transfusion during the hospital stay. The patient got four doses of Premarin as dictated above. The patient is to follow-up with FIBROUS WALLBOARD INSPECTOR. The patient's hemoglobin was 8.0 at the time of discharge. The patient's CMP was normal except for chloride 114. Urinalysis showed large occult blood. An abdominopelvic ultrasound done showed a huge uterus filled with multiple masses, most likely fibroids. A pelvic ultrasound was done and showed multiple uterine fibroids with possibly of endometrial polyp versus submucosal fibroid as well. The bleeding stopped. The hemoglobin remained stable. The patient needs to see FIBROUS WALLBOARD INSPECTOR. Patient advised to follow-up with PCP and FIBROUS WALLBOARD INSPECTOR in one week. Clifton Culver MD EA/ENRIQUE /8:34 AM /9:02 AM
== END 2016-12-22 09:28 | disposition home or self-care (01) ==
LOC: PHED 18:33 → INTOOBSV 21:14 → PHEDA 21:14 → PH3A 22:50
PROVIDERS: ADMIT Family Medicine; ATTEND Family Medicine
DX: N93.9 Abnormal uterine and vaginal bleeding, unspecified (principal); D25.9 Leiomyoma of uterus, unspecified; D50.0 Iron deficiency anemia secondary to blood loss (chronic); R10.30 Lower abdominal pain, unspecified; R63.0 Anorexia; R31.9 Hematuria, unspecified; R06.00 Dyspnea, unspecified; R11.0 Nausea; R10.2 Pelvic and perineal pain; R53.83 Other fatigue; F17.200 Nicotine dependence, unspecified, uncomplicated
CPT/HCPCS: 36430; 74177; 76856; 80048; 80053; 81001; 84703; 85007; 85018; 85025; 85027; 86850; 86900; 86901; 86920; 96361; 96374; 96375; 99285; G0378; J1410; J2270; J2405; J7030; J7050; P9016; Q9967